=== PATIENT | male | born 1970 | race Caucasian/White ===

== ENCOUNTER → 2017-08-19 | Outpatient (CLI) | payer MEDICAID | LOC: FIMAGING 12:44 | PROVIDERS: ATTEND Orthopaedic Surgery | DX: Z01.818 Encounter for other preprocedural examination (principal); M17.11 Unilateral primary osteoarthritis, right knee ==

== ENCOUNTER 2017-09-09 07:15 | Observation (INO) | payer MEDICAID ==
--- NOTE | 2017-08-29 09:52 | GHP ---
[f rep st] PREOP HISTORY AND PHYSICAL DATE OF ADMISSION: He will be an a.m. admission for surgery on September 09, 2017. Problem #1: Right knee degenerative arthritis. HISTORY OF PRESENT ILLNESS: The patient is a 47-year-old man admitted for a right knee Silverio partial medial compartment arthroplasty. He underwent right knee ACL reconstruction about 18 years ago. He probably also had a partial medial meniscectomy at the same time. He has done well with the knee up until the last 2 or 3 years. At that time, he was stepping over a log, and he developed some medial soreness. A couple of months ago, he put pressure on the knee and felt sudden severe pain, along with a crunching sensation. Since then , he has been experiencing the knee "hanging up." He has been unable to regain full extension. He had an MRI at [facility] on July 01, 2017, which showed some mucoid partial thickness degeneration of the tibial intraosseous component of his ACL graft. Severe degenerative changes were present in the medial compartment. Mild degenerative change in the patellofemoral joint. No meniscal tear. PAST MEDICAL HISTORY: He had a DVT following his ACL reconstruction. He was treated with Coumadin for a year. Otherwise, he is in excellent general health. No history of heart disease, hepatitis, or sleep apnea. CURRENT MEDICATIONS: None. ALLERGIES: None. He thinks he may be allergic to bee stings. Metal allergies : None. Latex allergy: None. SOCIAL HISTORY: The patient stopped smoking cigarettes 10 years ago. He does not drink alcohol. Currently, he is not working. He is living with his mom. He does not have a primary care doctor. FAMILY HISTORY: Noncontributory. PHYSICAL EXAMINATION: VITAL SIGNS: Height 5 feet 7 inches, weight 145 pounds. BMI 22.7. EYES: The conjunctivae and sclerae are clear. Pupils are round and reactive. MOUTH: Good oral hygiene. No loose teeth. CHEST: Clear. HEART: Regular rhythm. No murmurs. EXTREMITIES: Pertinent findings are limited to his right knee. He is tender along the medial joint line. A moderate effusion is present. He lacks 5 degrees of full extension and flexes to 110 degrees. Mild pseudolaxity of his medial collateral ligament. Films of his right knee show medial compartment cartilage space narrowing. The lateral compartment looks healthy. He has fixation screws in the tibia and the femur from his previous ACL reconstruction. IMPRESSION ON ADMISSION: Right knee medial compartment degenerative arthritis. Secondary diagnosis is history of deep vein thrombosis. He will undergo a right knee medial compartment Silverio arthroplasty partial knee replacement. The surgery has been described to him, including the risks, complications, expectations, and recovery time. He understands there is a small risk of future revision surgery. He is also at greater risk for DVT and will be treated accordingly. All his questions have been answered, and he consents to surgery. /[id number]/MODL MTDD
[~2017-09-09 07:15] MED LIST: BUPI/epINEPH/KETOROLAC IU ONE; NS IV ONE; POVIDONE-IODINE 20 ML in SODIUM CL IRRIG SOLUTION 500 ML IRR ONE; ROPIVACAINE 0.2% 80 MG, EPINEPHrine 0.2 MG, KETOROLAC TROMETHAMINE 30 MG in SYRINGE 0 ML IU ONE; TRANEXAMIC ACID IV ONE
[2017-09-09] MEDS ORDERED: VANCOMYCIN 1 GM VIAL ONE (07:43)
[2017-09-09] MEDS ORDERED: ceFAZolin 1 GM/5 ML SYR ONE (07:43)
[2017-09-09] MEDS ORDERED: ceFAZolin 2 GM/SWFI 2 GM/20 ML SYR IVP ONE (10:32)
[2017-09-09] MEDS ORDERED: GABAPENTIN 300 MG CAP PO ONE (10:32)
[2017-09-09] MEDS ORDERED: ACETAMINOPHEN 325 MG TAB PO ONE (10:32)
[2017-09-09] MEDS ORDERED: DEXAMETHASONE 4 MG/ML VIAL IVP ONE (10:32)
[2017-09-09] MEDS ORDERED: FAMOTIDINE 20 MG TAB PO ONE (10:32)
[2017-09-09] MEDS ORDERED: LR 1,000 ML IV ONE (10:34)
[2017-09-09] MEDS ORDERED: LIDOCAINE 1% 2 ML INJ ID PRN (10:34)
[2017-09-09] MEDS ORDERED: MIDAZOLAM 2 MG/2 ML VIAL IVP ONE (11:04)
--- NOTE | 2017-09-09 11:04 | PDANEPAE ---
ANE History of Present Illness Knee OA ANE Past Medical History - Cardiovascular History Hx Hypertension: No Hx Arrhythmias: No Hx Chest Pain: No Hx Coronary Artery / Peripheral Vascular Disease: No Hx CHF / Valvular Disease: No Hx Palpitations: No - Pulmonary History Hx COPD: No Hx Asthma/Reactive Airway Disease: No Hx Recent Upper Respiratory Infection: No Hx Oxygen in Use at Home: No Hx Sleep Apnea: No Sleep Apnea Screening Result - Last Documented: Negative - Neurologic History Hx Cerebrovascular Accident: No Hx Seizures: No Hx Dementia: No - Endocrine History Hx Diabetes: No - Renal History Hx Renal Disorders: No - Liver History Hx Hepatic Disorders: No - Neurological & Psychiatric Hx Hx Neurological and Psychiatric Disorders: No - Cancer History Hx Cancer: No - Congenital Disorder History Hx Congenital Disorders: No - GI History Hx Gastrointestinal Disorders: No - Other Health History Other Health History: POST OP DVT - Chronic Pain History Chronic Pain: Yes (RT KNEE) - Surgical History Prior Surgeries: RT ACL REPAIR X2. RT KNEE SCOPE POST DVT. LT ELBOW I&D-MRSA ANE Review of Systems Review of Systems: - Exercise capacity METS (RN): 4 METS ANE Patient History - Allergies Allergies/Adverse Reactions: venom-honey bee [bee venom (honey bee)] Allergy (Verified 01/30/15 12:42) - Home Medications Home Medications: Herbals/Supplements -Info Only 1 ea PO DAILY 01/30/15 [Last Taken 09/02/17] - Smoking Hx Smoking Status: Never smoked ANE Labs/Vital Signs - Vital Signs Blood Pressure: 139/89 Heart Rate: 75 Respiratory Rate: 16 O2 Sat (%): 97 Height: 170.18 cm Weight: 66.678 kg ANE Physical Exam - Airway Neck exam: FROM Mallampati Score: Class 1 Mouth exam: normal dental/mouth exam, hernandez - Pulmonary Pulmonary: no respiratory distress - Cardiovascular Cardiovascular: regular rate and rhythym - ASA Status ASA Status: I ANE Anesthesia Plan Anesthesia Plan: spinal Regional Anesthesia: adductor canal FNB (with cath to re-dose in AM)
[2017-09-09] MEDS ORDERED: PROPOFOL/EMULSION 500 MG/50 ML BOTTLE IV ONE ×2 (11:13→12:33)
[2017-09-09] MEDS ORDERED: fentaNYL 100 MCG/2 ML INJ ONE ×2 (11:13→13:44)
--- NOTE | 2017-09-09 11:14 | PDHPUP ---
History & Physical Update H&P update statement: This history and physical update is based on an assessment of the patient which was completed after admission or registration (within 24 hours), but prior to the surgery/procedure. H&P update: H&P reviewed & patient examined
[2017-09-09] MEDS ORDERED: LIDOCAINE 2% 5 ML SDV ONE (11:16)
[2017-09-09] MEDS ORDERED: fentaNYL 100 MCG/2 ML INJ IVP PRN (13:07)
[2017-09-09] MEDS ORDERED: ONDANSETRON 4 MG/2 ML VIAL IVP PRN ×2 (13:07→14:06)
[2017-09-09] MEDS ORDERED: HYDROmorphONE/DILAUDID 1 MG/ML INJ IVP PRN (13:07)
[2017-09-09] MEDS ORDERED: NALOXONE HCL 0.4 MG/ML INJ IVP PRN (13:07)
[2017-09-09] MEDS ORDERED: PROPOFOL 200 MG/20 ML VIAL ONE (13:33)
--- NOTE | 2017-09-09 13:45 | POSTOPPROG ---
Post Op Note Date of Operation: 09/09/17 Surgeon: Ken Edge Product Finisher: Jad/Lisa Anesthesiologist: Dr. Kali Talbert Anesthesia: IV Sedation, Spinal Post-op Diagnosis: Right knee medial compartment degenerative arthritis Procedure: Right knee medial compartment Silverio hemiarthroplasty Inf/Abcess present in the surg proc area at time of surgery?: No EBL: 50-100 (Adductor canal block with indwelling catheter in PACU)
[2017-09-09] MEDS ORDERED: DIPHENOXYLATE/ATROPINE LOMOTIL 1 TAB PO PRN (14:06)
[2017-09-09] MEDS ORDERED: PROMETHAZINE HCL 25 MG SUPPR PR PRN (14:06)
[2017-09-09] MEDS ORDERED: MAGNESIUM HYDROXIDE 30 ML UDCUP PO PRN (14:06)
[2017-09-09] MEDS ORDERED: ONDANSETRON DISINTEGRATING 4 MG TAB PO PRN (14:06)
[2017-09-09] MEDS ORDERED: METOCLOPRAMIDE 10 MG/2 ML VIAL IVP PRN (14:06)
[2017-09-09] MEDS ORDERED: NS 500 ML IV PRN (14:06)
[2017-09-09] MEDS ORDERED: LACTULOSE 20 GM/30 ML UDCUP PO PRN (14:06)
[2017-09-09] MEDS ORDERED: diphenhydrAMINE 25 MG CAP PO PRN (14:06)
[2017-09-09] MEDS ORDERED: PROMETHAZINE HCL 25 MG/ML INJ IVP PRN (14:06)
[2017-09-09] MEDS ORDERED: TEMAZEPAM 15 MG CAP PO PRN (14:06)
[2017-09-09] MEDS ORDERED: BISACODYL 10 MG SUPP PR PRN (14:06)
[2017-09-09] MEDS ORDERED: KETOROLAC 30 MG/1 ML SDV IVP PRN (14:06)
[2017-09-09] MEDS ORDERED: oxyCODONE IR 5 MG TAB PO PRN (14:06)
[2017-09-09] MEDS ORDERED: POLYETHYLENE GLYCOL 3350 17 GM PKT PO PRN (14:06)
[2017-09-09] MEDS ORDERED: traMADol 50 MG TAB PO PRN (14:06)
[2017-09-09] MEDS ORDERED: CYCLOBENZAPRINE 10 MG TAB PO PRN (14:06)
--- NOTE | 2017-09-09 14:24 | POSTANESTH ---
Post Anesthetic Evaluation Cardiovascular Status: Normal, Stable Respiratory Status: Normal, Stable Level of Consciousness/Mental Status: Can Participate in Eval Pain Control: Adequate, Prn Tx Ordered Nausea/Vomiting Control: Adequate, Prn Tx Ordered Complications Possibly Related to Anesthesia: None Noted (Adductor canal with catheter done in PACU. Plan to redose in AM and pull cath.)
[2017-09-09] MEDS ORDERED: LR 1,000 ML IV SCH (14:30)
--- NOTE | 2017-09-09 14:56 | GOP ---
[f rep st] OPERATIVE REPORT DATE OF OPERATION: 09/09/2017 SURGEON: Ken Edge MD BUFFING TURNER AND COUNTER: YANET Chang CFA. ANESTHESIA: Combination of Marcaine spinal, IV sedation, and adductor canal block. PREOPERATIVE DIAGNOSIS: Right knee medial compartment degenerative arthritis with varus deformity. POSTOPERATIVE DIAGNOSIS: Right knee medial compartment degenerative arthritis with varus deformity. PROCEDURE PERFORMED: Right knee medial compartment Silverio hemiarthroplasty. FINDINGS: DESCRIPTION OF PROCEDURE: The patient was given 2 g of preoperative IV Ancef within 60 minutes of surgery. He also received IV tranexamic acid at a dose of 10 mg/kg. He was placed on the operating room table and given spinal anesthesia with Marcaine by Dr. Talbert. He was then placed supine and given IV sedation. A Beck catheter was not used. He wore a JAYDON stocking and SCD on the nonoperative leg. His right lower extremity was prepped with ChloraPrep from the upper thigh tourniquet to the tips of the toes. It was draped free using sterile sheets, towels, and Ioban plastic drape. The [employer] time-out was performed to verify the correct surgical side and site, and the correct patient identity. The [place] time-out was also performed. The [facility] leg holding device was sterilely attached to the operating room table and used throughout the procedure to help position the knee. Two bicortical 3 mm partially threaded pins were inserted into the anteromedial cortex of the femur, approximately 4-5 inches proximal to the superior pole of the patella. They were inserted with the knee flexed 90 degrees. Two bicortical 3 mm partially threaded pins were inserted into the anteromedial cortex of the tibia about 4-5 inches distal to the tibial tubercle. The computer arrays were attached to both sets of pins. I confirmed that the arrays were visualized by the computer. The leg was exsanguinated with a 6- inch compressive wrap, and the pneumatic tourniquet was inflated to 250 mmHg. I made a 4-5 inch curved medial parapatellar incision. Subcutaneous tissues were sharply divided, and hemostasis was obtained using electrocautery. The capsule and synovium were opened in a medial parapatellar fashion. Very significant degenerative changes were present in his medial compartment. He had a couple of small pieces of loose floating cartilage in the medial compartment. He was eroded down to subchondral bone on the medial femoral condyle and the medial tibial plateau. He had some grade 2 articular cartilage softening and fibrillation on his patella primarily on the lateral facet. His femoral sulcus, articular cartilage was in good condition. The articular surface that I could see on his lateral femoral condyle was in good condition. His medial capsule and periosteum were elevated off the rim of the medial tibial plateau, all the way around to the posteromedial corner. I released his medial collateral ligament enough to balance the medial side of the knee. The anterior portion of his medial meniscus was excised. A small portion of the fat pad was excised to improve exposure. The femoral and tibial check points were inserted, checked and confirmed. I then performed the hip registration followed by registration of the medial and lateral malleoli. The bony anatomy of the femur and the tibia in the medial compartment were registered. Joint balancing was checked and captured in multiple degrees of flexion from 10 degrees of flexion to 110 degrees of flexion. I used a curved osteotome in the medial compartment to properly tension the medial collateral ligament. Implant position and templating was performed. I made a few minor adjustments in the position of the femoral component and also elevated the tibial component a millimeter in order to achieve proper balance of the medial collateral ligament throughout the range of motion. I confirmed that the preoperative plan for size 5 femur and size 5 tibia was correct. The robotic arm was registered. The femur was burred first. This was followed by burring of the tibial plateau with robotic arm control. The cut articular cartilage surfaces were trimmed with a rongeur. The anchor holes on the femur and tibia were completed. I excised the posterior horn of his medial meniscus. I did a trial reduction. I liked the size 5 femur and tibia. However, I thought the medial compartment was a little bit tight with an 8 mm insert. I went back and cut an additional 1 mm off the tibial plateau. I then confirmed proper soft tissue balance and proper sizing with the trial components. He had a 7 or 8 degree flexion contracture preoperatively and he had about 3 or 4 degrees of flexion with the trial components in place. He flexed to 135 degrees. His medial collateral ligament. Chandler properly tensioned throughout the range of motion. The surfaces were prepared for cementing. They were carefully cleaned with the pulsating lavage. The CarboJet device was used to blow dry the cancellous surfaces. A single batch of high viscosity methylmethacrylate cement with 1 g of added vancomycin was mixed. While it was still in a doughy state I packed the peg holes on the tibial surface and layered a thin layer of additional cement on the surface. A small amount of cement was placed on the undersurface of the tray. The tray was inserted and tapped securely into place. Excess cement was removed before it hardened. I packed a small amount of cement in the peg holes on the femur and then added additional cement on the back of the femoral component. This was inserted and tapped securely into place. Excess cement was removed before it hardened. I had a smooth transition from the intact articular cartilage to the metal surface of the femoral component anteriorly. The size 5, 8 mm tibial insert was inserted. With the first effort I had a little trouble locking it in place. I removed it and repositioned it, and then tapped it securely into place. Tension was held on the knee while the cement hardened. Excess cement removed before it hardened. He lacked a couple of degrees of full extension and flexed to 135 degrees. His medial collateral ligament was properly balanced throughout the range of motion. The tourniquet was deflated and the total tourniquet time was 1 hour and 16 minutes. The tibial and femoral check points were removed. The 2 pins in the femur and the 2 pins in the tibia were removed. 40 mL of the joint anesthetic cocktail were injected into the medial capsule, the vastus medialis tendon and muscle, and the subcutaneous tissues around the skin edges. The vastus medialis portion of the extensor mechanism was repaired with several interrupted [id number] #2 FiberWire sutures. The capsule and synovium were closed first with multiple interrupted [id number] PDS sutures, followed by a running #2 barbed Ethicon Stratafix PDO suture. Subcutaneous tissues were closed with a running 0 barbed Ethicon Stratafix Monoderm suture. The skin was closed with a running 3-0 barbed Ethicon Stratafix Monoderm subcuticular suture. The skin edges were reapproximated and sealed with half- inch Steri-Strips. The puncture wounds were closed with Steri-Strips. The wound was covered with a piece of sterile Mepilex waterproof dressing. This was followed by a 6-inch compressive wrap. A long-leg stocking was applied followed by the cooling device. He wore a stocking and SCD on the opposite leg during the procedure. The sponge and needle count were correct on 2 occasions. I used a Silverio Restoris MCK femoral component in size 5. The tibial tray was a Silverio Restoris MCK in size 5. The tibial insert was a size 5 and [address] and Jeff Gonzalez acted as surgical assistants. Their assistance was a medical necessity for safe completion of the procedure. /[id number]/MODL MTDD
[2017-09-09] MEDS: ACETAMINOPHEN 325 MG TAB PO SCH (18:23)
[2017-09-09] MEDS: ceFAZolin 2 GM/SWFI 2 GM/20 ML SYR IVP SCH (18:23)
[2017-09-09] MEDS: TRANEXAMIC ACID 650 MG TAB PO SCH (21:54)
[2017-09-09] MEDS: SENNOSIDES/DOCUSATE SODIUM TAB PO SCH (21:54)
[2017-09-09] MEDS: ASPIRIN 325 MG TAB PO SCH (21:55)
[2017-09-09] MEDS: FAMOTIDINE 20 MG TAB PO SCH (21:55)
[2017-09-09 22:59] VITALS: RESP 16; O2SAT 94
[2017-09-10] MEDS: ACETAMINOPHEN 325 MG TAB PO SCH ×3 (00:03→12:19)
[2017-09-10] MEDS: ceFAZolin 2 GM/SWFI 2 GM/20 ML SYR IVP SCH (03:48)
[2017-09-10] MEDS: TRANEXAMIC ACID 650 MG TAB PO SCH (04:58)
[2017-09-10 07:43] VITALS: BP 120/74; PULSE 74; TEMP 98.5
[2017-09-10] MEDS: ASPIRIN 325 MG TAB PO SCH (08:50)
[2017-09-10] MEDS: SENNOSIDES/DOCUSATE SODIUM TAB PO SCH (08:51)
[2017-09-10] MEDS: FAMOTIDINE 20 MG TAB PO SCH (08:51)
--- NOTE | 2017-09-10 09:18 | SOAPPROG ---
SOAP Progress Note Assessment/Plan: Assessment: Afebrile. Awake and alert. No pain so far. Up and walking in hernandez. Dsg dry. H/H is good. Post op films look good. Plan: PT today. DC later today. 09/10/17 09:16 Objective: Vital Signs Temp Pulse Resp BP Pulse Ox 36.9 C 74 16 120/74 94 09/10/17 07:42 09/10/17 07:42 09/10/17 07:42 09/10/17 07:42 09/10/17 07:42 Laboratory Results 09/10/17 05:55 09/09/17 09/10/17 09/11/17 05:59 05:59 05:59 Intake Total 1999 Output Total 4995 Balance -675 ICD10 Worksheet Patient Problems: Problems Problem Status Onset Osteoarthritis of right knee Acute
[2017-09-10] MEDS ORDERED: ENOXAPARIN 40 MG/0.4 ML SYR SC SCH (09:30)
[2017-09-10] MEDS ORDERED: ROPIVACAINE HCL 150 MG/30 ML INJ ONE (09:34)
--- NOTE | 2017-09-10 09:49 | GDS ---
[f rep st] DISCHARGE SUMMARY PREOPERATIVE DIAGNOSIS: Right knee medial compartment degenerative arthritis. DISCHARGE DIAGNOSIS: Right knee medial compartment degenerative arthritis. OPERATION PERFORMED: 09/09/2017, right knee medial compartment Silverio hemiarthroplasty. POSTOPERATIVE COMPLICATIONS: None. CONDITION ON DISCHARGE: Improved. DESCRIPTION OF HOSPITAL COURSE: The patient was admitted to the hospital the morning of surgery. Hi s admission CBC was normal. The same day, under a combination of Marcaine, spinal, IV sedation, and adductor canal block anesthesia, he underwent a right knee medial compartment Silverio hemiarthroplasty. Postoperatively, he was treated with multimodal DVT prophylaxis, including Lovenox. He has a histor y of previous DVT. He was seen by Physical Therapy and made good progress with ambulation and knee r pamela of motion. On the first postoperative day, his hemoglobin and hematocrit were 13.9 and 39.9. B y the time of discharge, he was afebrile, and he was independent walking with crutches. DISPOSITION: The patient is discharged to his home. He will go to outpatient physical therapy at my office. He may progress to full weightbearing as tolerated. He will receive Lovenox 40 mg daily anaya u for 21 days. I will see him back in the office on 09/22/2017. If there are any problems, he is to call me at the office. /[id number]/MODL
--- NOTE | 2017-09-10 10:40 | SOAPPROG ---
SOAP Progress Note Assessment/Plan: Assessment: POD #1 s/p knee resurfacing Pain well controlled with adductor canal block. Pt up and walking without difficulty with good muscle strength. Adductor catheter intact without evidence of swelling or erythema. Plan: After negative aspiration Ropivacaine 0.5% 15 ml given in divided dose with aspiration without discomfort. Catheter removed with tip intact. Discharge later today. Pt will transition to oral pain meds. 09/10/17 10:35 Objective: Vital Signs Temp Pulse Resp BP Pulse Ox 36.9 C 74 16 120/74 94 09/10/17 07:42 09/10/17 07:42 09/10/17 07:42 09/10/17 07:42 09/10/17 07:42 Laboratory Results 09/10/17 05:55 09/09/17 09/10/17 09/11/17 05:59 05:59 05:59 Intake Total 1999 Output Total 8835 Balance -675 ICD10 Worksheet Patient Problems: Problems Problem Status Onset Osteoarthritis of right knee Acute
--- NOTE | 2017-09-10 14:02 | ASMTCMCOM ---
CM Note CM Note Notes: Pt medically stable for d/c. PT rec home. No CM d/c needs identified. Date Signed: 09/10/2017 02:02 PM Electronically Signed By:JACKIE Morales
== END 2017-09-10 13:40 | disposition home or self-care (01) ==
LOC: F3N 10:28
PROVIDERS: ADMIT Orthopaedic Surgery; ATTEND Orthopaedic Surgery
PROC: 8E0Y0CZ Robotic Assisted Procedure of Lower Extremity, Open Approach (ICD-10-PCS; principal; 2017-09-09 11:45)
PROC: 0SRC0J9 Replacement of Right Knee Joint with Synthetic Substitute, Cemented, Open Approach (ICD-10-PCS; principal; 2017-09-09 11:45)
DX: M17.11 Unilateral primary osteoarthritis, right knee (principal); Z86.718 Personal history of other venous thrombosis and embolism
CPT/HCPCS: 27446; 73560; 97116; 97161; 97165; G0378; C1713; J0171; J0690; J1100; J1650; J1885; J2250; J2704; J2795; J3010; J3370

== ENCOUNTER → 2018-03-23 | Outpatient (CLI) | payer MEDICAID | LOC: FIMAGING 11:21 | PROVIDERS: ATTEND Physician Assistant | DX: M79.605 Pain in left leg (principal); I80.02 Phlebitis and thrombophlebitis of superficial vessels of left lower extremity ==